=== PATIENT | male | born 1995 | race Caucasian/White ===

== ENCOUNTER 2020-12-11 03:40 | Inpatient (IN) ==
[2020-12-11] MEDS ORDERED: ASPIRIN CHEW 324 MG PO STA (04:07)
--- NOTE | 2020-12-11 04:21 | Emergency Department Note ---
Impression & Plan Pericarditis ED Provider Note NAME: ANGIE WHELAN AGE: 25 SEX: M ARRIVES VIA: Walk-In INFORMANT: Patient ED PROVIDER(S): Krista Joiner DO CHIEF COMPLAINT: Chest pain PLAN: [facility] Condition[facility] Guarded MEDICAL DECISION MAKING: This is a 25-year-old male patient who presents to the emergency department with an episode of weakness and chills followed by chest pain. He has significant EKG changes and an elevated troponin. I was concerned the patient had pericarditis versus myocarditis. Covid testing was negative. He has no significant leukocytosis. He is afebrile. Patient was given oral aspirin here in the ER. CT scan of his chest was negative. He was observed on the clinical nursing director and vitals remained stable. I [facility] the [facility] and [facility] will evaluate for further management. Triage Nursing notes reviewed and agree them. Vital Signs: reviewed and unremarkable Differential diagnosis: Aortic dissection, GERD, costochondritis, pericarditis, myocarditis, STEMI ER treatment provided: Oral aspirin Diagnostics interpreted by me: ECG: Normal sinus rhythm at a rate of [address] segment elevation in the inferior and lateral leads. There were no obvious reciprocal changes. There is no ectopy. This is concerning for ischemia versus pericarditis. Cardiac Monitoring: Normal sinus rhythm at a rate of 64 Laboratory studies: See below Imaging studies: As per stat read CTA: Normal caliber aorta. No acute aortic syndrome. No central pulmonary embolism. Lungs are clear. No pleural effusion or pneumothorax. Heart size is normal Consultation(s): Dr. Santana HPI: 25/M arrives for evaluation of chest. Patient describes approximately 4 nights ago he had developed generalized weakness and cold symptoms. During the days that followed, the patient developed a headache and some chills. Approximately 24 hours ago, the patient developed an episode of chest pain that awoke him from sleep and lasted for approximately 8 hours and then subsided. He stated that he felt like he was about 80% of his normal throughout the day yesterday but could not work out at his usual maximum intensity. The patient was able to fall asleep last night but then awoke again this morning at 4 AM with even more intense chest pain. ROS: See above HPI for pertinent positives & negatives. A total of 10 systems re viewed and were otherwise negative. 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 PAST SURGICAL HISTORY:None FAMILY HISTORY:There is no family history of heart disease SOCIAL HISTORY:The patient is a student at [employer]. He denies any drug use. He is also in the [employer]. HOME MEDICATIONS:None ALLERGIES:None VITALS:See Below PHYSICAL EXAMINATION: HEENT: Head - normocephalic and atraumatic Pupils are equal, round, and reactive to light. Extraocular eye muscles are intact, and sclera are anicteric. Nose - moist nasal mucosa without discharge. Mouth - moist buccal mucosa. Oropharynx is nonerythematous and there is no tonsillar exudate or edema noted. Neck: Supple; no JVD or cervical lymphadenopathy. Heart: Regular rate and rhythm. There is a normal S1 and S2 with no murmurs, clicks, or gallops appreciated. Lungs: Clear to auscultation bilaterally with no wheezes, rales, or rhonchi. Abdomen: Soft, completely nontender, nondistended, with good bowel sounds. There are no palpable pulsatile masses or hepatosplenomegaly. There is no guarding, rigidity, or rebound noted. Extremities: No evidence of cyanosis, clubbing, or edema. There are easily palpable peripheral pulses. Skin: warm and dry with good turgor and no rashes. ED COURSE: Times/Reassessments: 0350: The patient was evaluated in room C7. A complete history and physical was performed. An order was placed for continuous cardiac monitoring. The patient was in a normal sinus rhythm at a rate of [address] segment elevation in lead II. Twelve-lead EKG was performed and s howed ST segment elevation in in the inferior and lateral leads. He was given 324 mg of oral aspirin. I discussed the case with Dr. Santana. The patient went for CT angiogram of the chest to rule out aortic dissection. 0530: The patient was evaluated and states that he is feeling moderately better. Vitals are stable. I reviewed the results of the laboratory studies and CT scan with the patient. I explained to him the difference between myocarditis and pericarditis. I explained that he would have an echocardiogram performed this morning along with additional laboratory testing to determine the possible viral origin of the pericarditis. Krista Joiner, DO Past Med/Surg History Social History Smoking Status: Never smoker Feels Safe at Home: Yes Allergies Allergies Allergy/AdvReac Type Severity Reaction Status Date / Time No Known Drug Allergies Allergy Unknown Verified 12/11/20 06:30 Home Meds Home Medications Medication Instructions Recorded Confirmed No Known Home Medications 12/11/20 12/11/20 Results & Data (ED) Vital Signs Vital Signs - 24 hr 12/11/20 03:45 12/11/20 04:13 12/11/20 05:31 Temperature 36.7 C Temperature Source Temporal Artery Scan Pulse Rate 64 Pulse Rate [Apical] 74 Respiratory Rate 18 18 Respiratory Effort / Characteristics Non-Labored Spontaneous Non-Labored Spontaneous Respiratory Depth Normal Normal Blood Pressure 148/100 H Blood Pressure [Right Arm] 144/80 H Blood Pressure Mean 116 Blood Pressure Mean [Right Arm] 101 Blood Pressure Position Lying Pulse Oximetry 100 99 98 Oxygen Delivery Method Room Air Room Air Room Air Sepsis Recent Fever Within 48 Hours No Sepsis New/Unexplained Change in Mental Status N/A Sepsis Action Taken by Nursing No Action Required Laboratory Data Result diagrams: 12/11/20 03:55 12/11/20 03:55 Lab Results 12/11/20 12/11/20 Range/Units 03:55 03:55 WBC 9.23 (4.8-10.8) K/uL RBC 5.03 (4.7-6.1) M/uL Hgb 15.8 (14.0-18.0) g/dL Hct 45.4 (42-52) % MCV 90.3 (80-100) fL MCH 31.4 (25-34) pg MCHC 34.8 (32-36) g/dL RDW Std Deviation 42.3 (36.4-46.3) fL RDW Coeff of Amaris 12.8 (11.5-14.5) % Plt Count 194 (130-400) K/uL MPV 10.7 H (7.4-10.4) fL Immature Gran % (Auto) 0.1 % Neut % (Auto) 51.4 % Lymph % (Auto) 30.7 % Stark % (Auto) 13.8 % Eos % (Auto) 3.8 % Baso % (Auto) 0.2 % Neut # (Auto) 4.75 (1.4-6.5) K/uL Lymph # (Auto) 2.83 (1.2-3.4) K/uL Stark # (Auto) 1.27 H (0.11-0.59) K/uL Eos # (Auto) 0.35 (0-0.5) K/uL Baso # (Auto) 0.02 (0-0.2) K/uL Immature Gran # (Auto) 0.01 (0.00-0.02) K/uL Sodium 142 (136-145) mmol/L Potassium 4.2 (3.5-5.1) mmol/L Chloride 107 (98-107) mmol/L Carbon Dioxide 32 (21-32) mmol/L Anion Gap 3.0 (3-11) BUN 16 (7-18) mg/dl Creatinine 1.10 (0.6-1.4) mg/dl Est Cr Clr Drug Dosing 122.3 ml/min Est GFR ( Amer) 108.3 Est GFR (Non-Af Amer) 93.5 BUN/Creatinine Ratio 14.5 (10-20) Glucose 111 H (70-99) mg/dl Calcium 9.4 (8.5-10.1) mg/dl Total Bilirubin 0.3 (0.2-1) mg/dl AST 55 H (15-37) U/L ALT 34 (12-78) U/L Alkaline Phosphatase 143 H (45-117) U/L Troponin I 21.300 H* (0-0.045) ng/ml Total Protein 7.9 (6.4-8.2) gm/dl Albumin 4.0 (3.4-5.0) gm/dl Globulin 3.9 (2.5-4.0) gm/dl Albumin/Globulin Ratio 1.0 (0.9-2) Lipase 137 (73-393) U/L Administered Medications Discontinued Medications Aspirin (Aspirin Chew 324 Mg) 324 mg PO NOW STA Stop: 12/11/20 04:08 Last Admin: 12/11/20 04:12 Dose: 324 mg Documented by: [id number] Colchicine (Colchicine 0.6 Mg Tab) 0.6 mg PO NOW STA Stop: 12/11/20 06:07 Last Admin: 12/11/20 06:15 Dose: 0.6 mg Documented by: [id number] Ioversol (Optiray 350 500ml) 125 ml IV ONCE ONE Stop: 12/11/20 04:45 Last Admin: 12/11/20 04:45 Dose: 107 ml Documented by: [id number] Imaging Data Radiologist's Impression: Chest X-Ray 12/11/20 04:10 XR chest 1V portable CLINICAL HISTORY: Chest pain. Abnormal EKG COMPARISON STUDY: No previous studies for comparison. FINDINGS: The cardiac and mediastinal contours are normal. There is no evidence of focal pulmonary consolidation. There is no evidence of failure. No pleural effusions are visualized.[ IMPRESSION: No active disease in the chest. ACT 112: Negative or not required by law. Electronically signed by: Ancelmo Arzola M.D. 12/11/2020 6:51 AM Discharge Plan Visit Data Chief Complaint: Chest Pain Stated Complaint: CHEST PAIN ED Provider: Krista Joiner Discharge Problem: Pericarditis Discharge Problem: Pericarditis Qualifiers: Pericarditis type: unspecified type Chronicity: acute Qualified Code(s): I30.9 - Acute pericarditis, unspecified
[2020-12-11 04:22] LABS: Basophils # (auto) 0.02 K/uL (0-0.2); Basophils % (auto) 0.2 %; Eosinophils # (auto) 0.35 K/uL (0-0.5); Eosinophils % (auto) 3.8 %; Hematocrit (blood only) 45.4 % (42-52); Hemoglobin 15.8 g/dL (14.0-18.0); Immature Granulocytes # (auto) 0.01 K/uL (0.00-0.02); Immature Granulocytes % (auto) 0.1 %; Lymphocytes # (auto) 2.83 K/uL (1.2-3.4); Lymphocytes % (auto) 30.7 %; Mean Corpuscular Hemoglobin 31.4 pg (25-34); Mean Corpuscular Hgb Conc 34.8 g/dL (32-36); Mean Corpuscular Volume 90.3 fL (80-100); Mean Platelet Volume 10.7 fL (7.4-10.4); Monocytes # (auto) 1.27 K/uL (0.11-0.59); Monocytes % (auto) 13.8 %; Neutrophils # (auto) 4.75 K/uL (1.4-6.5); Neutrophils % (auto) 51.4 %; Platelet Count 194 K/uL (130-400); RDW Coefficient of Variation 12.8 % (11.5-14.5); RDW Standard Deviation 42.3 fL (36.4-46.3); Red Blood Count 5.03 M/uL (4.7-6.1); White Blood Count 9.23 K/uL (4.8-10.8)
[2020-12-11] MEDS ORDERED: OPTIRAY 350 500ml IV ONE (04:44)
[2020-12-11 04:54] LABS: BUN Creatinine Ratio 14.5 (10-20); Calcium 9.4 mg/dl (8.5-10.1); Creatinine Clr Calc Pharmacy 122.3 ml/min; Est GFR (African American) 108.3; Est GFR (Non-African American) 93.5; Potassium 4.2 mmol/L (3.5-5.1)
[2020-12-11 05:23] LABS: Bilirubin,Total 0.3 mg/dl (0.2-1); Globulin 3.9 gm/dl (2.5-4.0); Total Protein 7.9 gm/dl (6.4-8.2); Troponin I 21.3 ng/ml (0-0.045)
[2020-12-11] MEDS ORDERED: COLCHICINE 0.6 MG TAB PO STA (06:06)
--- NOTE | 2020-12-11 06:09 | History & Physical Report ---
Date of Service December 11, 2020 Assessment & Plan (1) Myopericarditis: 25 yo M no PMHx admitted for suspected viral myopericarditis. Myopericarditis: On presentation with viral syndrome symptoms for several days prior to developing chest pain. Elevated troponin and diffuse ST elevations. Given asa 324 in ER; continue colchicine 0.6mg BID and aspirin 81mg BID. Cardiology consult placed. COVID 19 negative. Echocardiogram ordered. MIO, RF, CMV, Coxsackievirus, Lyme, Anaplasma, [place], uric acid, and CK ordered. NSS at 125cc/hr. Patient is currently chest pain free. Code Status: FULL CODE FEN: NPO with NSS at 125cc/hr DVT ppx: low risk for DVT, SCDs Dispo: Telemetry for cardiac monitoring, Cardiology evaluation History of Present Illness Chief Complaint: chest pain Primary Care Provider: [facility] 25 yo M no significant PMHx presents for chest pain and malaise. Four days ago had some general malaise, body fatigue. Yesterday had some intermittent chest pain and scheduled an appointment with [facility] for today. Overnight, he had worsening of his chest pain and came to the ER. In the ER patient had troponin [address]ations, labwork otherwise normal. Allergies Allergy/AdvReac Type Severity Reaction Status Date / Time No Known Drug Allergies Allergy Unknown Verified 12/11/20 06:30 Home Medications Medication Instructions Recorded Confirmed Type No Known Home Medications 12/11/20 12/11/20 History Past Med/Surg History Social History Smoking Status: Never smoker Hx Alcohol Use: Yes Alcohol type: beer Hx Substance Use: No Preferred Language: Georgian Telephone Lineman Required: No Beliefs That Will Affect Care: None Current Living Situation: Family Feels Safe at Home: Yes Assistive Devices: None Review of Systems Review of Systems: All systems reviewed & are unremarkable except as noted in HPI & below Constitutional: + malaise; no fever and no chills Respiratory: no cough and no dyspnea Cardiovascular: + chest pain; no palpitations and no edema Gastrointestinal: no abdominal pain, no constipation and no diarrhea/loose stools Physical Exam Constitutional: WD/WN, vitals as above Eyes: PERRL, conjunctivae normal, anicteric sclerae ENMT: external ear and nose normal, oropharynx normal Neck: normal visual inspection Respiratory: normal respiratory effort, lungs clear to auscultation Cardiovascular: RRR, no murmur, no edema Gastrointestinal (Abdomen): normal bowel sounds, soft, nontender, no hepatosplenomegaly Musculoskeletal: no cyanosis or clubbing, extremities motor strength 5/5 Skin: no rashes, warm and dry Neurologic: AAOx3, normal speech. Bilateral UE, LE, and face without sensory or motor deficits. No tremor. Psychiatric: A+Ox3, euthymic affect Results & Data Results & Data ([facility]) Vital Signs (Past 12 Hours) Vital Signs Temp Pulse Pulse Resp BP BP Pulse Ox 12/11/20 05:31 74 18 144/80 H 98 12/11/20 04:13 99 12/11/20 03:45 36.7 C 64 18 148/100 H 100 Code Status & VTE Plan VTE Prophylaxis Plan VTE Prophylaxis will be ordered: Yes Supervising Physician Co-Signing Physician Notes Attending addendum: I have physically seen this patient, have supervised the medical residents activities, and agree with the H&P unless as otherwise noted. Assessment and Plan: Myopericarditis- The patient will be admitted to telemetry for serial cardiac enzymes, serial EKG's, cardiac rhythm monitoring and a 2-D echocardiogram with Dopplers. Order follow-up laboratories: Sed rate, MIO, Monospot, CMV, Lyme, anaplasmosis, rheumatoid factor, hepatitis panel, coxsackie B virus. Aspirin 81 mg p.o. twice daily Colchicine 0.6 mg p.o. twice daily COVID-19 negative Consult cardiology Remaining orders and notations as noted Resident Activity Tracking Resident Involvement: Resident Care Provided Care Provided: Adult Hospital Medicine
[2020-12-11] MEDS ORDERED: ACETAMINOPHEN 325 MG TAB PO PRN (06:41)
--- NOTE | 2020-12-11 06:52 | XRay Report ---
XR chest 1V portable CLINICAL HISTORY: Chest pain. Abnormal EKG COMPARISON STUDY: No previous studies for comparison. FINDINGS: The cardiac and mediastinal contours are normal. There is no evidence of focal pulmonary co nsolidation. There is no evidence of failure. No pleural effusions are visualized.[ IMPRESSION: No active disease in the chest. ACT 112: Negative or not required by law. Electronically signed by: Ancelmo Arzola M.D. 12/11/2020 6:51 AM
[2020-12-11 07:17] LABS: Troponin I 31.7 ng/ml (0-0.045); Uric Acid 4.5 mg/dl (2.6-7.2)
--- NOTE | 2020-12-11 07:21 | CT Scan Report ---
CT ANGIOGRAPHY OF THE CHEST WITHOUT AND WITH IV CONTRAST CLINICAL HISTORY: Severe chest pain POSSIBLE DISSECTION COMPARISON STUDY: Chest x-ray dated 12/03/2020 TECHNIQUE: Noncontrast images were obtained of the thorax. Following the IV administration of 107 mL of Optiray, CT angiography of the thorax was performed from the thoracic inlet to the lung bases. MIP images were acquired. Images are reviewed in the axial, sagittal, and coronal planes. IV contrast wa s administered without complication. A dose lowering technique was utilized adhering to the principl es of ALARA. CT DOSE: 973.14 mGy.cm FINDINGS: Thyroid: Imaged portions of the thyroid gland are normal in appearance. Thoracic aorta: Noncontrast images reveal no evidence of acute thoracic aortic hematoma. Postcontrast images reveal no evidence of thoracic aortic aneurysm or dissection. There is a ductus bump. Pulmonary vasculature: The pulmonary trunk is normal in caliber. There are no central filling defects identified to suggest pulmonary embolus. Note that this examination was not protocoled for the evalu ation of pulmonary emboli. HEART: The heart is normal in size and configuration, without pericardial effusion. Lungs and pleural spaces: There is no pneumothorax. There are no pleural effusions. There is no focal pulmonary consolidation. Mediastinum: There is no evidence of pathologic mediastinal lymphadenopathy. Pauly: There is no evidence of pathologic hilar adenopathy Axilla: There is no evidence of pathologic axillary lymphadenopathy. Upper abdomen: There is a 3 mm right hepatic lobe hypodensity. This is unlikely to be of acute clini julio cesar significance Skeletal structures: There are no lytic or blastic osseous lesions. IMPRESSION: 1. No acute intrathoracic findings 2. No evidence of thoracic aortic aneurysm or dissection 2. No evidence of pneumothorax 4. No evidence of focal pulmonary consolidation ACT 112: Negative or not required by law. Electronically signed by: Ancelmo Arzola M.D. 12/11/2020 7:20 AM
[2020-12-11 07:22] LABS: Monotest Negative (Negative)
[2020-12-11] MEDS: NSS + 20MEQ KCL 20 MEQ/1,000 ML BAG IV SCH ×2 (07:24→16:33)
[2020-12-11 07:50] LABS: Lyme Ab IgG w/WB Rflx Negative (Negative); Lyme Ab IgM w/WB Rflx Negative (Negative)
[2020-12-11] MEDS: ASPIRIN 325 MG ECTAB PO SCH ×2 (08:57→16:34)
[2020-12-11] MEDS ORDERED: ASPIRIN 81 MG ECTAB PO SCH (09:00)
[2020-12-11 09:29] LABS: Hepatitis B Surf Ag Rflx Conf Neg (Neg)
[2020-12-11 09:57] LABS: Hepatitis C IgG 13Yrs+Old_Rflx Neg (Neg)
[2020-12-11] MEDS: ONDANSETRON INJ 2 MG/ML 2 ML VIAL IV PRN ×2 (11:47→15:04)
--- NOTE | 2020-12-11 13:06 | XCELERA ---
[id number]
--- NOTE | 2020-12-11 13:10 | Cardiology Consultation ---
Date of Consultation December 11, 2020 Assessment & Plan (1) Myopericarditis: -symptoms, EKG, and troponin I level all consistent with acute myopericarditis. -fortunately, echocardiogram notes normal left ventricular systolic function. -agree with high dose aspirin x1 month -agree with colchicine x3 months. -trend cardiac biomarkers. -should curtail vigorous physical activity after discharge. History of Present Illness Attending Physician: Maurice Joiner, History of Present Illness Mr. Zaragoza is a healthy 25-year-old male admitted yesterday with myopericarditis. This consultation was ordered to assist in his cardiac management. The patient was in his usual state of health until December 07 when he began to feel weak and sick. The patient was able to sleep that evening, however, awoke on Wednesday with a headache and chills. The patient was awaken from sleep at 4:00 a.m. on Wednesday with significant chest discomfort which she described as an ache which occasionally radiated to his back. There were no other associated symptoms such as shortness of breath, nausea, vomiting, or diaphoresis. His symptoms seem to improve after approximately 12 hours. He was then awakened at 3:00 a.m. on Wednesday with the same symptoms. He was quite concerned, and therefore, proceeded to the emergency room for further care. On arrival here, the patient had an abnormal EKG suggesting pericarditis. His initial troponin I level was elevated at 21.3. He was started on aspirin and colchicine and fortunately, his symptoms have improved. The patient has had no premorbid illnesses. He leads a very healthy lifestyle both in terms of his exercise and diet. He has never experienced exertional chest pain or limiting dyspnea. He further denies syncope, presyncope, PND, orthopnea, palpitations, lower extremity edema, and claudication. Currently, patient is resting comfortably in bed without complaints. His father is at the bedside. Past medical and surgical history 1. 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 No tobacco alcohol. No recreational drugs Family history Father has history of paroxysmal atrial fibrillation. Mother is alive and well Siblings are healthy Review of systems A 10 review systems was undertaken and negative except that described above. Allergies Allergy/AdvReac Type Severity Reaction Status Date / Time No Known Drug Allergies Allergy Unknown Verified 12/11/20 06:30 Home Medications Medication Instructions Recorded Confirmed Type No Known Home Medications 12/11/20 12/11/20 History Patient History Social History Smoking Status: Never smoker Hx Alcohol Use: Yes Alcohol type: beer Hx Substance Use: No Preferred Language: Khmer Manifold Builder Required: No Beliefs That Will Affect Care: None Current Living Situation: Family Other Information That Helps Us Care for You: No Feels Safe at Home: Yes Safety Concerns: Feels Safe At This Time Assistive Devices: None Physical Exam Physical Exam: In general this is a well-developed well-nourished white male in no acute distress. HEENT exam is negative. Neck is supple with full carotid upstrokes. There are no carotid bruits. Jugular venous pressure is flat at 90. There is no thyromegaly. Cardiovascular exam reveals a regular rhythm with a normal S1 and physiologically split S2. No S3, S4, or murmurs are noted. Lungs are clear without rales, rhonchi, or wheezes. Abdomen is soft and nontender without bruits. Extremities reveal intact radial artery and posterior tibial pulses bilaterally. There is no peripheral edema. Results & Data ([facility]) Vital Signs (Past 12 Hours) Vital Signs Temp Pulse Pulse Resp BP BP Pulse Ox 12/11/20 09:14 68 18 113/64 98 12/11/20 08:17 67 18 121/72 96 12/11/20 08:06 98 12/11/20 07:00 63 18 139/79 97 12/11/20 05:31 74 18 144/80 H 98 12/11/20 04:13 99 12/11/20 03:45 36.7 C 64 18 148/100 H 100 Laboratory Results CBC notes hemoglobin 15.8, hematocrit 45.4, white count 9.2, and platelet count [id number]. Electrolytes note a sodium of 142, potassium 4.2, chloride 107, bicarb 32, BUN 16, creatinine 1.1, glucose of 111. Initial troponin I level was 21.3 w ith a follow-up value of 31.7. CK is elevated 792. Diagnostic Findings EKG notes sinus rhythm with diffuse ST elevation consistent with acute pericar ditis. Echocardiogram notes normal left ventricular systolic function without wall motion abnormality. Left ventricular ejection fraction is 55-60%. There was no valvular pathology. Chest x-ray is benign. PG Care Time/CCT Total # of Minutes Spent Total Time Spent with Patient: Total time spent is greater than 50% in coordination of care (as documented) at patient's floor/unit and/or counseling patient: Coding Level of Care Code 57578 Inpt Consult Level 4 Diagnoses Myopericarditis I31.9
--- NOTE | 2020-12-11 16:15 | Electrocardiogram Report ---
Test Reason : Blood Pressure : / mmHG Vent. Rate : 062 BPM Atrial Rate : 062 BPM P-R Int : 144 ms QRS Dur : 086 ms QT Int : 404 ms P-R-T Axes : 077 080 075 degrees QTc Int : 410 ms Normal sinus rhythm with sinus arrhythmia Diffuse ST elevation consider acute pericarditis Abnormal ECG No previous ECGs available Confirmed by Amos Conner ([id number]) on 12/11/2020 4:15:31 PM Referred By: REFERRED SELF Confirmed By:Amos Conner
--- NOTE | 2020-12-11 16:33 | Medical Student Progress Note ---
Date of Service December 11, 2020 Assessment & Plan (1) Myopericarditis: 1. Acute Myopericarditis Brodie Zaragoza is a 25-year-old male with a benign PMHx who presented to [facility] emergency department on 12/11/20 secondary to a two-day history of nocturnal chest pain accompanied by a four-day history of weakness and chills. Initial ECG showed ST segment elevation in the inferior and lateral leads and troponin was elevated. Due to the ECG findings and elevation in cardiac enzymes, myope ricarditis of viral etiology is suspected and the patient has been admitted for further monitoring. * ECG: ST elevation in inferior and lateral leads * Troponin: 21.3 --> 31.7 --> 28.3. Continue trending. * Initiated ASA 650 mg TID and Colchicine 0.6 mg BID. Continue Colchicine for three months. * Cardiology Consulted * CTA performed in ED. No thoracic aortic dissection or aneurysm. No focal pulmonary consolidation. * TTE perfomed. * Rheumatologic marker pending * Viral Panel pending * COVID negative. No history of known COVID infection * Lyme negative. Anaplasmosis negative. [place] negative. * Discussed exercise restriction following discharge Code status: Full Code FEN: NSS with potassium VTE PPx: Low risk, SCDs Dispo: Telemetry for cardiac monitoring Admission and Anticipated Discharge Date Admission Date: December 11, 2020 Supervising Attestation I personally examined the patient and verified all roberts points of history and exam, discussed case, and agree with decision making with Nini Clarke MS4. Feeling a bit better, pain down to about a 1 or 2. Breathing okay. No palpitations. Vitals noted, in general he is awake and alert pleasant no distress. HEENT normocephalic atraumatic membranes moist. Breathing unlabored no accessory muscle use good effort. Skin shows no rashes no pallor or icterus. Neuro no focal deficits. Myopericarditissupportive care, aspirin and colchicine, appears to be improving. Answered all questions, outlined overall course of illness and treatment to the best of my ability and answered all questions to the best of my ability and to his satisfaction. Otherwise as above Subjective Brodie feels well this morning. As of the morning of 12/11, he denies any chest pain, palpitations, or shortness of breath. In the afternoon, he did endorse mild chest pain rated at a 1/10, which is down from a 6/10 at the time of admission. Review of Systems Constitutional: + weakness; no fever, no chills, no body aches, no fatigue and no anorexia Respiratory: as per Subjective / HPI Cardiovascular: as per Subjective / HPI Gastrointestinal: no abdominal pain, no nausea and no vomiting Physical Exam Constitutional: WD/WN, vitals as above no acute distress Eyes: no conjunctival abnormality Neck: normal visual inspection Respiratory: normal respiratory effort, lungs clear to auscultation Cardiovascular: RRR, no murmur, no edema Heart Sounds: no cardiac rub Vessels: posterior tibial pulses present, dorsalis pedis pulses present and radial pulses present Extremities: normal capillary refill; no edema Gastrointestinal (Abdomen): normal bowel sounds, soft, nontender, no hepatosplenomegaly Skin: no rashes, warm and dry Results & Data ([facility]) Vital Signs (Past 12 Hours) Vital Signs Temp Pulse Pulse Resp BP Pulse Ox 12/11/20 15:11 66 12/11/20 14:15 36.8 C 68 16 136/78 98 12/11/20 13:46 59 L 12/11/20 13:00 62 18 113/73 97 12/11/20 09:14 68 18 113/64 98 12/11/20 08:17 67 18 121/72 96 12/11/20 08:06 98 12/11/20 07:00 63 18 139/79 97 12/11/20 05:31 74 18 144/80 H 98
[2020-12-11] MEDS ORDERED: MoRPHine SULFATE 2 MG/ML CARP IV STA (21:11)
[2020-12-11] MEDS: COLCHICINE 0.6 MG TAB PO SCH (21:18)
[2020-12-12] MEDS: ASPIRIN 325 MG ECTAB PO SCH ×3 (01:09→17:19)
[2020-12-12] MEDS: NSS + 20MEQ KCL 20 MEQ/1,000 ML BAG IV SCH ×4 (01:09→17:19)
--- NOTE | 2020-12-12 01:19 | Billing Data ---
Date of Service December 12, 2020 Coding Level of Care Code 08876 Initial Inpt Care Lvl 2
[2020-12-12 07:21] LABS: Basophils # (auto) 0.02 K/uL (0-0.2); Basophils % (auto) 0.2 %; Eosinophils # (auto) 0.29 K/uL (0-0.5); Eosinophils % (auto) 3.4 %; Hematocrit (blood only) 41.9 % (42-52); Hemoglobin 14.5 g/dL (14.0-18.0); Immature Granulocytes # (auto) 0.01 K/uL (0.00-0.02); Immature Granulocytes % (auto) 0.1 %; Lymphocytes # (auto) 2.31 K/uL (1.2-3.4); Lymphocytes % (auto) 27.2 %; Mean Corpuscular Hemoglobin 31.7 pg (25-34); Mean Corpuscular Hgb Conc 34.6 g/dL (32-36); Mean Corpuscular Volume 91.7 fL (80-100); Mean Platelet Volume 11.2 fL (7.4-10.4); Monocytes # (auto) 0.96 K/uL (0.11-0.59); Monocytes % (auto) 11.3 %; Neutrophils # (auto) 4.89 K/uL (1.4-6.5); Neutrophils % (auto) 57.8 %; Platelet Count 186 K/uL (130-400); RDW Coefficient of Variation 12.8 % (11.5-14.5); RDW Standard Deviation 42.9 fL (36.4-46.3); Red Blood Count 4.57 M/uL (4.7-6.1); White Blood Count 8.48 K/uL (4.8-10.8)
[2020-12-12 07:49] LABS: BUN Creatinine Ratio 11.1 (10-20); Calcium 9.5 mg/dl (8.5-10.1); Creatinine Clr Calc Pharmacy 122.3 ml/min; Est GFR (African American) 108.3; Est GFR (Non-African American) 93.5; Potassium 4.3 mmol/L (3.5-5.1)
[2020-12-12 07:52] LABS: Albumin Globulin Ratio 1.1 (0.9-2); Albumin Level 3.5 gm/dl (3.4-5.0); Bilirubin,Total 0.6 mg/dl (0.2-1); Globulin 3.1 gm/dl (2.5-4.0); Total Protein 6.6 gm/dl (6.4-8.2)
[2020-12-12] MEDS: COLCHICINE 0.6 MG TAB PO SCH ×2 (09:07→21:54)
--- NOTE | 2020-12-12 09:55 | Cardiology Progress Note ---
Date of Service December 12, 2020 Assessment & Plan (1) Myopericarditis: -only 1 recurrence of his chest discomfort since admission yesterday. -troponin I level trending down. -EKG still abnormal, however, improving. -continue nonsteroidal agent x1 month -continue colchicine x3 months. -follow-up with me in 2-3 weeks. -would like one more troponin level to assure downward trend. Admission and Anticipated Discharge Date Admission Date: December 11, 2020 Subjective The patient is resting comfortably in bed without complaints chest discomfort or dyspnea. Did note some chest discomfort last evening at approximately 9:00 p.m. this improved with 1 dose intravenous morphine. Physical Exam Physical Exam: In general this is a well-developed well-nourished white male in no acute distress. HEENT exam is negative. Neck is supple with full carotid upstrokes. There are no carotid bruits. Jugular venous pressure is flat at 90. There is no thyromegaly. Cardiovascular exam reveals a regular rhythm with a normal S1 and physiologically split S2. No S3, S4, or murmurs are noted. No rub. Lungs are clear without rales, rhonchi, or wheezes. Abdomen is soft and nontender without bruits. Extremities reveal intact radial artery and post erior tibial pulses bilaterally. There is no peripheral edema. Results & Data ([facility]) Vital Signs (Past 12 Hours) Vital Signs Temp Pulse Pulse Resp BP Pulse Ox 12/12/20 07:50 36.3 C L 60 20 125/75 98 12/12/20 07:16 52 L 12/12/20 04:58 63 12/12/20 04:52 18 119/70 98 12/11/20 23:03 36.9 C 66 18 138/78 98 Laboratory Results Troponin I level peaked at 31.7. Now down to 21.3. Diagnostic Findings EKG notes sinus bradycardia and diffuse ST elevation consistent with pericarditis. However, ST elevations less pronounced than yesterday. 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 No ventricular tachycardia. PG Care Time/CCT Total # of Minutes Spent Total Time Spent with Patient: Total time spent is greater than 50% in coordination of care (as documented) at patient's floor/unit and/or counseling patient: Coding Level of Care Code 11369 Subseq Hosp Care Lvl 3 Diagnoses Myopericarditis I31.9
[2020-12-12 11:45] LABS: EBV Nuclear Ag Antibody <18.00 U/mL; EBV Virus Capsid Ag IgG Ab <18.00 U/mL; Epstein Barr Virus Early Ag Ab <9.00 U/mL
--- NOTE | 2020-12-12 15:18 | Medical Student Progress Note ---
Date of Service December 12, 2020 Assessment & Plan (1) Myopericarditis: 1. Acute Myopericarditis Brodie Zaragoza is a 25-year-old male with a benign PMHx who presented to [facility] emergency department on 12/11/20 secondary to a two-day history of nocturnal chest pain accompanied by a four-day history of weakness and chills. Initial ECG showed ST segment elevation in the inferior and lateral leads and troponin was elevated. Due to the ECG findings and elevation in cardiac enzymes, myope ricarditis of viral etiology is suspected and the patient has been admitted for further monitoring. * ECG: ST elevation in inferior and lateral leads * Troponin: 21.3 --> 31.7 --> 28.3 --> 24.2 --> 25.2 --> 26.2 --> 17.3. Continue trending. * Initiated ASA 650 mg TID and Colchicine 0.6 mg BID. Continue ASA x1 month and Colchicine x3 months. * Cardiology Consult appreciated * CTA performed in ED. No thoracic aortic dissection or aneurysm. No focal pulmonary consolidation. * TTE perfomed. Normal LV systolic function. Normal ejection fraction. * Rheumatologic markers pending * Viral Panel pending * COVID negative. No history of known COVID infection * Lyme negative. Anaplasmosis negative. [place] negative. * Discussed exercise restriction following discharge Code status: Full Code FEN: NSS with potassium VTE PPx: Low risk, SCDs Dispo: Telemetry for cardiac monitoring Admission and Anticipated Discharge Date Admission Date: December 11, 2020 Supervising Attestation I personally examined the patient and verified all roberts points of history and exam, discussed case, and agree with decision making with Nini Clarke MS4 Feeling better overall. Had some chest pain through the night, now basically down to a 0. Walking around without any significant dyspnea. Vitals noted, in general he is awake and alert pleasant no distress. HEENT normocephalic atraumatic mucous membranes moist. Breathing unlabored no accessory muscle use good effort. Skin shows no rashes no pallor or icterus. Neuro shows no focal deficits. Acute myopericarditisappears to be improving, no significant arrhythmias, pain improving, we would like to see the troponin trend down significantly prior to consideration for discharge. Continue current care otherwise. Otherwise as above Subjective Brodie states that he experienced chest pain last night around 9 pm that he rated at a 3/10, compared to 6/10 the night prior to admission. He was given morphine, which resolved the pain. He was then able to sleep well without any pain and he does not endorse chest pain today. He also does not endorse dyspnea, palpitations, chills, VERA, or weakness. He has not experienced constitutional symptoms since Sunday 12/10. Review of Systems Constitutional: as per Subjective / HPI Respiratory: as per Subjective / HPI Cardiovascular: as per Subjective / HPI Gastrointestinal: no abdominal pain, no nausea and no diarrhea/loose stools Musculoskeletal: as per Subjective / HPI Physical Exam Constitutional: WD/WN, vitals as above no acute distress Respiratory: normal respiratory effort, lungs clear to auscultation Cardiovascular: RRR, no murmur, no edema Heart Sounds: normal S1 and normal S2; no cardiac rub Palpation: normal PMI Vessels: posterior tibial pulses present, dorsalis pedis pulses present and radial pulses present Extremities: no edema Gastrointestinal (Abdomen): normal bowel sounds, soft, nontender, no hepatosplenomegaly Skin: no rashes, warm and dry Psychiatric: A+Ox3, euthymic affect Results & Data ([facility]) Vital Signs (Past 12 Hours) Vital Signs Temp Pulse Pulse Resp BP Pulse Ox 12/12/20 11:55 36.8 C 93 H 20 147/93 H 100 12/12/20 07:50 36.3 C L 60 20 125/75 98 12/12/20 07:16 52 L 12/12/20 04:58 63 12/12/20 04:52 18 119/70 98 Laboratory Results Troponin 21.3 --> 28.3 --> 24.2 --> 25.2 --> 26.2 CK 365 Sodium 140, Potassium 4.3, BUN 12, Cr 1.10
--- NOTE | 2020-12-12 16:28 | Billing Data ---
Date of Service December 12, 2020 Coding Level of Care Code 19947 Subseq Hosp Care Lvl 3
[2020-12-13] MEDS: ASPIRIN 325 MG ECTAB PO SCH ×2 (00:16→09:11)
[2020-12-13] MEDS: NSS + 20MEQ KCL 20 MEQ/1,000 ML BAG IV SCH (00:18)
--- NOTE | 2020-12-13 06:14 | Electrocardiogram Report ---
Test Reason : Blood Pressure : / mmHG Vent. Rate : 068 BPM Atrial Rate : 068 BPM P-R Int : 148 ms QRS Dur : 086 ms QT Int : 406 ms P-R-T Axes : 071 070 055 degrees QTc Int : 431 ms Normal sinus rhythm with sinus arrhythmia Acute pericarditis Abnormal ECG When compared with ECG of 11-DEC-2020 03:50, ST less elevated in Inferior leads T wave amplitude has decreased in Lateral leads Confirmed by Case Bobby ([id number]) on 12/13/2020 6:14:08 AM Referred By: REFERRED SELF Confirmed By:Case Bobby
[2020-12-13 06:28] LABS: Basophils # (auto) 0.02 K/uL (0-0.2); Basophils % (auto) 0.2 %; Eosinophils % (auto) 3.7 %; Hematocrit (blood only) 42.3 % (42-52); Hemoglobin 14.5 g/dL (14.0-18.0); Immature Granulocytes # (auto) 0.02 K/uL (0.00-0.02); Immature Granulocytes % (auto) 0.2 %; Lymphocytes # (auto) 2.04 K/uL (1.2-3.4); Lymphocytes % (auto) 25.2 %; Mean Corpuscular Hemoglobin 31.2 pg (25-34); Mean Corpuscular Hgb Conc 34.3 g/dL (32-36); Mean Platelet Volume 10.9 fL (7.4-10.4); Monocytes # (auto) 1.15 K/uL (0.11-0.59); Monocytes % (auto) 14.2 %; Neutrophils # (auto) 4.56 K/uL (1.4-6.5); Neutrophils % (auto) 56.5 %; Platelet Count 185 K/uL (130-400); RDW Coefficient of Variation 12.5 % (11.5-14.5); RDW Standard Deviation 41.4 fL (36.4-46.3); Red Blood Count 4.65 M/uL (4.7-6.1); White Blood Count 8.09 K/uL (4.8-10.8)
--- NOTE | 2020-12-13 06:28 | Electrocardiogram Report ---
Test Reason : Blood Pressure : / mmHG Vent. Rate : 053 BPM Atrial Rate : 053 BPM P-R Int : 156 ms QRS Dur : 092 ms QT Int : 452 ms P-R-T Axes : 071 075 064 degrees QTc Int : 424 ms Sinus bradycardia Acute pericarditis Abnormal ECG When compared with ECG of 11-DEC-2020 20:09, No significant change was found Confirmed by Case Bobby ([id number]) on 12/13/2020 6:28:04 AM Referred By: REFERRED SELF Confirmed By:Case Bobby
[2020-12-13 07:06] LABS: Albumin Level 3.6 gm/dl (3.4-5.0); BUN Creatinine Ratio 13.5 (10-20); Calcium 9.1 mg/dl (8.5-10.1); Creatinine Clr Calc Pharmacy 153.9 ml/min; Est GFR (Non-African American) 120.8
[2020-12-13 07:09] LABS: Albumin Globulin Ratio 1.1 (0.9-2); Bilirubin,Total 0.3 mg/dl (0.2-1); Globulin 3.2 gm/dl (2.5-4.0); Total Protein 6.8 gm/dl (6.4-8.2)
[2020-12-13] MEDS: COLCHICINE 0.6 MG TAB PO SCH (09:11)
--- NOTE | 2020-12-13 10:55 | Cardiology Progress Note ---
Date of Service December 13, 2020 Assessment & Plan (1) Myopericarditis: -no recurrent chest discomfort.. -troponin I level trending down. -EKG improving. -continue nonsteroidal agent x1 month -continue colchicine x3 months. -follow-up with me in 2-3 weeks. Admission and Anticipated Discharge Date Admission Date: December 11, 2020 Subjective The patient is resting comfortably in the bedside chair without complaints of chest pain or dyspnea. He is anxious for hospital discharge. Physical Exam Physical Exam: In general this is a well-developed well-nourished white male in no acute distress. HEENT exam is negative. Neck is supple with full carotid upstrokes. There are no carotid bruits. No JVD. There is no thyromegaly. Cardiovascular exam reveals a regular rhythm with a normal S1 and physiologically split S2. No S3, S4, or murmurs are noted. No rub. Lungs are clear without rales, rhonchi, or wheezes. Abdomen is soft and nontender without bruits. Extremities reveal intact radial artery and posterior tibial pulses bilaterally. There is no peripheral edema. Results & Data ([facility]) Vital Signs (Past 12 Hours) Vital Signs Temp Pulse Pulse Pulse Resp BP BP 12/13/20 10:33 36.4 C L 66 82 19 136/79 142/78 H 12/13/20 08:01 36.4 C L 82 19 136/79 12/13/20 07:37 58 L 12/13/20 03:39 36.4 C L 66 12 118/73 12/12/20 23:50 37 C 72 17 142/78 H Pulse Ox 12/13/20 10:33 100 12/13/20 08:01 100 12/13/20 07:37 12/13/20 03:39 98 12/12/20 23:50 98 Laboratory Results Troponin I level down to 15.9 from a peak of 31.7. 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 EKG notes sinus bradycardia with ST elevation and T-wave inversion in the inferolateral leads. PG Care Time/CCT Total # of Minutes Spent Total Time Spent with Patient: Total time spent is greater than 50% in coordination of care (as documented) at patient's floor/unit and/or counseling patient: Coding Level of Care Code 02996 Subseq Hosp Care Lvl 3 Diagnoses Myopericarditis I31.9
--- NOTE | 2020-12-13 13:11 | Electrocardiogram Report ---
Test Reason : Blood Pressure : / mmHG Vent. Rate : 055 BPM Atrial Rate : 055 BPM P-R Int : 156 ms QRS Dur : 092 ms QT Int : 456 ms P-R-T Axes : 071 093 046 degrees QTc Int : 436 ms Sinus bradycardia Rightward axis Abnormal ECG When compared with ECG of 12-DEC-2020 04:36, T wave inversion now evident in Lateral leads Confirmed by Amos Conner ([id number]) on 12/13/2020 1:11:41 PM Referred By: REFERRED SELF Confirmed By:Amos Conner
--- NOTE | 2020-12-13 18:21 | Discharge Summary ---
Date of Service December 13, 2020 Admission HPI Per Admitting Provider 25 yo M no significant PMHx presents for chest pain and malaise. Four days ago had some general malaise, body fatigue. Yesterday had some intermittent chest pain and scheduled an appointment with [facility] for today. Overnight, he had worsening of his chest pain and came to the ER. In the ER patient had troponin [address]ations, labwork otherwise normal. Principal Diagnosis Myopericarditis Discharge Exam In general he is awake and alert pleasant no distress. HEENT normocephalic atraumatic mucous membranes moist. Breathing unlabored no accessory muscle use good effort. Skin shows no rashes no pallor or icterus. Neuro shows no focal deficits. Discharge Data Allergies Allergy/AdvReac Type Severity Reaction Status Date / Time No Known Drug Allergies Allergy Unknown Verified 12/11/20 06:30 Consultations 12/11/20 05:29 ED Decision to Admit Stat 12/11/20 06:41 Consult Cardiology Routine Ordered Studies 12/11/20 04:07 CT angio chest dissec wo/w con Urgent Hospital Course (1) Myopericarditis: Had a fairly classic course of preceding viral URI type symptoms, followed by fairly classic pericarditis symptoms, given his significantly elevated troponin also found to have myocarditis as well. -Troponin initially trended from 21-32, but then down to 16 by the day prior to discharge -Symptoms essentially resolved to a 0 -Echocardiogram normal -Stable for home -Cardiology recommended NSAIDs for monthsdiscussed usage as well as GI risks, and what to watch for/when to possibly reduce dosing sooner should he have any GI upset -Colchicine x3 months (discussed diarrhea risk) -Follow-up cardiology 2 to 3 weeks -Discussed activity limitations until he improves further Total Time Total Time Spent Total Time Spent (In Minutes): <30 Discharge Plan Discharge Items Patient Disposition: Home - Self-Care Reason For Visit: MYOPERICARDITIS Discharge Diagnosis: Myopericarditis Activity: Per Instructions section Non-emergency contact: Primary Care Provider Call non-emergency contact if: you have any medication questions, your symptoms worsen and your pain is worsening Follow-up/Referrals: [facility] [Primary Care Provider] - Diet: Regular Addtl Attending Provider Instructions: You were admitted to any Medical Center due to a 2-day history of nocturnal chest pain and a 4-day history of weakness and chills. He had EKG findings and cardiac enzyme elevations concerning for myopericarditis, which is an inflammation of the heart muscle and its surrounding and closure, with suspicion that this was caused by a virus. While admitted you were treated for the above with aspirin and colchicine. Additionally, cardiology saw you and gave their recommendations. You will be discharged on: * Aspirin 650 mg 3 times daily for 1 month * Colchicine 0.6 mg twice daily for 3 months We recommend that after discharge you ease back into physical activity and try not to do too much initially. The expectation is that your chest pain should be well controlled on the above medications and remain at a tolerable level. If this is not the case and you have worsening chest pain, it is not controlled by her medications, or you have symptoms such as palpitations, shortness of breath, nausea, vomiting, or any other concerning symptoms please contact your primary care provider or seek emergency medical care. Thank you for allowing us to participate in your care. Pending Studies at Discharge: No Stand-Alone Forms: My [facility], Smoking Cessation Medications and DC Order Prescriptions: New colchicine 0.6 mg capsule 0.6 mg PO BID 90 Days Qty: 180 RF: 0 aspirin 650 mg tablet,delayed release (DR/EC) 650 mg PO Q8H 30 Days Qty: 90 RF: 0 No Action No Known Home Medications RF: 0 Discharge Orders: Discharge Order (Routine); Ordered 12/13/20 [facility] Admit Date/Time: 12/11/20 05:56 Attending Provider: Maurice Joiner Admit Provider: Addy Chen Primary Care Provider: [facility] Other Providers: Addy Chen ; Isai Santana Other Interventions: Discharge Summary Assessment (RN) Last Done: 12/13/20 10:33 Coding Level of Care Code D/C Day Management <30 mins Diagnoses Myopericarditis I31.9
[2020-12-14 15:42] LABS: Anti Nuclear Antibody Screen POSITIVE (NEGATIVE); CMV IgG Antibody <0.60 U/mL; CMV IgM Antibody <30.00 AU/mL; Coxsackie B1 1:32 (<1:8); Hepatitis A Antibody IgM NON-REACTIVE (NON-REACTIVE); Hepatitis B Core Antibody IgM NON-REACTIVE (NON-REACTIVE); Rheumatoid Factor <14 IU/mL (<14)
[2020-12-16 12:40] LABS: ANA Titer 1:40 titer
== END 2020-12-13 11:17 | disposition home or self-care (01) | DRG 316 ==
LOC: ED 03:40 → SUATTDRO 05:56 → EDINP 05:56 → 2S 13:12
DX: I30.1 Infective pericarditis